=== PATIENT | female | born 1980 | race Caucasian/White ===

== ENCOUNTER 2017-05-15 19:42 | Observation (INO) | payer OTHER ==
--- NOTE | 2017-05-15 20:41 | EDPHY ---
HPI/HX/ROS/PE/MDM Narrative: CHIEF COMPLAINT: Vaginal spotting, Positive home test. HISTORY OF PRESENT ILLNESS: The patient is a 37-year-old female presenting with vaginal spotting and positive home test. The patient has had intermittent spotting over the past two days. Today she had three episodes of spotting as well as abdominal cramping. She states the cramping felt similar to usual menstrual cramps. This evening she started feeling dizzy. Her LMP April 07. She is relatively regular. Patient is not on control. A2. She denies recent sickness. No urinary complaints. No history of STD. No nausea, vomiting , or diarrhea. REVIEW OF SYSTEMS: Aside from elements discussed in the HPI, a comprehensive 10-point review of systems was reviewed and is negative. PAST MEDICAL HISTORY: Denies. SOCIAL HISTORY: . VITAL SIGNS: Reviewed by me GENERAL: Well-developed, well-nourished, resting comfortably in no respiratory distress. HEENT: Atraumatic. Eyes: No icterus, no injection. Mouth: moist mucous membranes. No erythema or lesions. Neck: supple with no adenopathy. LUNGS: Clear to auscultation bilaterally, no wheezes, rhonchi or rales. CARDIAC: Regular rate and rhythm, no rubs, murmurs or gallops. ABDOMEN: Soft, inconsistent very mild adnexal tenderness, nondistended, bowel sounds normal. BACK: No CVA tenderness. EXTREMITIES: No trauma. No edema. Range of motion is normal throughout. NEURO: Alert and oriented, grossly nonfocal. SKIN: Warm and dry, no rash. PSYCHIATRIC: Normal mentation, no agitation. Portions of this note were transcribed by a medical chemist. I personally performed a history, physical exam, medical decision making, and confirmed accuracy of information the transcribed note. ED Course: 37-year-old male presenting with positive at home test and multiple days of intermittent spotting. BHCG-Quant ordered. BMP and CBC pending. Beta Quant is elevated at 916.13. Obstetrics ultrasound is pending. ultrasound is concerning for a number of findings. The patient has a large amount of complex free fluid in the pelvis concerning for hemorrhage. Patient has hyperemic mass in the left ovary concerning for ectopic and patient has a complex hyper vascular structure in the left adnexa and left fallopian tube. No definitive intrauterine or gestational sac is identified. Patient remains hemodynamically stable in the emergency department. She reports she developed some bleeding shortly before her ultrasound. She continues to have no pain. I discussed the results of the ultrasound with the patient. Repeat hemoglobin hematocrit were ordered. Patient's course was also discussed with Dr. Morena Granados. Patient will be admitted to the hospital for further observation as well as serial blood tests. MDM: Differential diagnosis of the patient's vaginal bleeding includes threatened miscarriage, spontaneous miscarriage, ectopic , tubo-ovarian abscess, and a uterine , ovarian cysts, uterine fibroids, uterine cancer, cervical cancer, and infection. - Data Points Imaging Results: Imaging Impressions Obstetrics Ultrasound 05/15/17 21:32 Impression: 1. No definite intrauterine gestation is identified which could reflect very early stage or the equivocal gestational sac may simply be a decidual reaction. 2. Hypervascular left adnexal complex cystic area, possible ectopic gestation with continued follow-up recommended. 3. Right adnexal 5.7 x 4.6 cm lesion which may represent an obstructed right fallopian tube. Results called and discussed with Suzanne Casey MD on 05/16/2017 at 0:05 Imaging: Discussed imaging studies w/ call center supervisor Radiologist Laboratory Results: Laboratory Results 05/15/17 21:08 05/15/17 21:08 05/15/17 05/15/17 05/15/17 21:08 21:08 21:08 WBC RBC Hgb Hct MCV MCH MCHC RDW Plt Count MPV Neut % (Auto) Lymph % (Auto) [place] % (Auto) Eos % (Auto) Baso % (Auto) Nucleat RBC Rel Count Absolute Neuts (auto) Absolute Lymphs (auto) Absolute Monos (auto) Absolute Eos (auto) Absolute Basos (auto) Absolute Nucleated RBC Immature Gran % Immature Gran # Sodium 137 mEq/L mEq/L (134-144) Potassium 3.8 mEq/L mEq/L (3.5-5.2) Chloride 106 mEq/L mEq/L (97-110) Carbon Dioxide 20 mEq/l L mEq/l (22-31) Anion Gap 11 mEq/L mEq/L (8-16) BUN 13 mg/dL mg/dL (7-23) Creatinine 0.9 mg/dL mg/dL (0.6-1.0) Estimated GFR > 60 Glucose 102 mg/dL H mg/dL (70-100) Calcium 9.4 mg/dL mg/dL (8.5-10.4) Beta HCG, Qual POSITIVE Beta HCG, Quant 916.31 mIU/mL H mIU/mL (0-4.83) Patient ABO/Rh O POSITIVE 05/15/17 21:08 WBC 8.88 10^3/uL 10^3/uL (3.80-9.50) RBC 4.48 10^6/uL 10^6/uL (4.18-5.33) Hgb 14.1 g/dL g/dL (12.6-16.3) Hct 40.6 % % (38.0-47.0) MCV 90.6 fL fL (81.5-99.8) MCH 31.5 pg pg (27.9-34.1) MCHC 34.7 g/dL g/dL (32.4-36.7) RDW 13.3 % % (11.5-15.2) Plt Count 224 10^3/uL 10^3/uL (150-400) MPV 10.4 fL fL (8.7-11.7) Neut % (Auto) 78.2 % H % (39.3-74.2) Lymph % (Auto) 13.7 % L % (15.0-45.0) [place] % (Auto) 7.3 % % (4.5-13.0) Eos % (Auto) 0.2 % L % (0.6-7.6) Baso % (Auto) 0.3 % % (0.3-1.7) Nucleat RBC Rel Count 0.0 % % (0.0-0.2) Absolute Neuts (auto) 6.93 10^3/uL H 10^3/uL (1.70-6.50) Absolute Lymphs (auto) 1.22 10^3/uL 10^3/uL (1.00-3.00) Absolute Monos (auto) 0.65 10^3/uL 10^3/uL (0.30-0.80) Absolute Eos (auto) 0.02 10^3/uL L 10^3/uL (0.03-0.40) Absolute Basos (auto) 0.03 10^3/uL 10^3/uL (0.02-0.10) Absolute Nucleated RBC 0.00 10^3/uL 10^3/uL (0-0.01) Immature Gran % 0.3 % % (0.0-1.1) Immature Gran # 0.03 10^3/uL 10^3/uL (0.00-0.10) Sodium Potassium Chloride Carbon Dioxide Anion Gap BUN Creatinine Estimated GFR Glucose Calcium Beta HCG, Qual Beta HCG, Quant Patient ABO/Rh Medications Given: Discontinued Medications Sodium Chloride (Ns) 1,000 mls @ 0 mls/hr IV ONCE ONE; Wide Open PRN Reason: Protocol Stop: 05/15/17 20:51 Last Admin: 05/15/17 21:12 Dose: 1,000 mls General Time Seen by Provider: 05/15/17 20:31 Initial Vital Signs: Initial Vital Signs Temperature (C) 36.9 C 05/15/17 19:47 Heart Rate 74 05/15/17 19:47 Respiratory Rate 14 05/15/17 19:47 Blood Pressure 114/81 H 05/15/17 19:47 O2 Sat (%) 98 05/15/17 19:47 O2 Delivery Mode Room Air Allergies/Adverse Reactions: No Known Allergies Allergy (Unverified 10/05/11 13:25) Home Medications: Medication Instructions Recorded NK [No Known Home Meds] 05/15/17 Departure - Departure Disposition: [facility] Inpatient Acute Clinical Impression: Possible ectopic , Intra abdominal hemorrhage Vaginal bleeding in Qualifiers: Trimester: first trimester Qualified Code(s): O46.91 - Antepartum hemorrhage, unspecified, first trimester Condition: Fair Referrals: Morena Granados DO [Doctor of Osteopathy] - As per Instructions Report Scribed for: Suzanne Casey Report Scribed by: Faviola Fulton Date of Report: 05/15/17 Time of Report: 20:41
[2017-05-15] MEDS ORDERED: NS 1,000 ML IV ONE (20:50)
[2017-05-15 21:18] LABS: % IMMATURE GRANULYOCYTES 0.3 % (0.0-1.1); ABSOLUTE IMMATURE GRANULOCYTES 0.03 10^3/uL (0.00-0.10); ADD DIFF? NO; ADD MORPH? NO; ADD SCAN? NO; ATYPICAL LYMPHOCYTE FLAG 0 (0-99); FRAGMENT RBC FLAG 0 (0-99); HEMATOCRIT 40.6 % (38.0-47.0); HEMOGLOBIN 14.1 g/dL (12.6-16.3); LEFT SHIFT FLG 0 (0-99); LIPEMIA HEMOLYSIS FLAG 90 (0-99); MEAN CELL HEMOGLOBIN 31.5 pg (27.9-34.1); MEAN CELL HEMOGLOBIN CONCENTR. 34.7 g/dL (32.4-36.7); MEAN CELL VOLUME 90.6 fL (81.5-99.8); MEAN PLATELET VOLUME 10.4 fL (8.7-11.7); PLATELET CLUMPS FLAG 0 (0-99); PLATELET COUNT 224 10^3/uL (150-400); RED BLOOD CELL COUNT 4.48 10^6/uL (4.18-5.33); RED CELL DISTRIBUTION WIDTH 13.3 % (11.5-15.2)
[2017-05-15 21:40] LABS: ANION GAP 11 mEq/L (8-16); CALCIUM 9.4 mg/dL (8.5-10.4); CARBON DIOXIDE 20 mEq/l (22-31); CHLORIDE 106 mEq/L (97-110); CREATININE 0.9 mg/dL (0.6-1.0); GLOMERULAR FILTRATION RATE > 60; GLUCOSE 102 mg/dL (70-100); POTASSIUM 3.8 mEq/L (3.5-5.2); SODIUM 137 mEq/L (134-144)
[2017-05-16 02:51] VITALS: BP 115/80; PULSE 89; RESP 18; TEMP 98; O2SAT 96
--- NOTE | 2017-05-16 03:08 | GHP ---
[f rep st] HISTORY AND PHYSICAL DATE OF ADMISSION: 05/16/2017 ADMISSION DIAGNOSIS: Positive test with vaginal bleeding and probable hemoperitoneum. HISTORY OF PRESENT ILLNESS: The patient is a 37-year-old 5, para 2-0-2-2, who is a week pas t her expected period. She had been trying to conceive and had used Femara with this most recent pr egnancy. She began having brown spotting on Sunday and again on Sunday. She was fine Sunday exce pt for increased bloating. This morning she developed bad midline pain and took ibuprofen and had s light red spotting. The pain resolved and started again a couple hours later and then has since res olved. She felt her belly was slightly tender, but overall felt fine except for light bloating toda y. She ate dinner this evening and had lightheaded and dizzy and felt nausea and had to lay down. She called the office, and I advised her to take a test. The test was positive, so patient decided to come in, even know she was feeling back to baseline with the exception of sli ght bloating. Patient arrived to the emergency room, and labs were drawn. Her hemoglobin was 14. Her hematocrit was 40. Her platelets were 222. Her HCG was 916.31. Her vital signs have remained stayed stable. A pelvic ultrasound was obtained, which showed a possible small decidual reaction ve rsus sac within the endometrial canal with no yolk sac or pole identified. There is an equivo laila subchorionic hemorrhage on the left side of the structure. There is some free fluid within the pelvis with complex echogenicity suggesting hemorrhagic fluid. At the left side, there was a 2.7 x 2.5 complex cystic structure with hyperemia. In the right adnexa, there is a vascularized structure measuring 5 x 2.3 x 4.67, which might be a right fallopian tube. There are no clinical findings dorsey ggested of tubo-ovarian abscess. Patient was evaluated in the emergency room and is very comfortabl e. She lives up in [place] with her . Due to the hemoperitoneum and a positive test and living in the [facility], patient will be observed overnight, and we will come up with a man agement plan in the morning. PAST MEDICAL HISTORY: Significant for infertility of unknown etiology. MEDICATIONS: vitamins and recently Femara. PAST SURGICAL HISTORY: D and C x2. ALLERGIES: No known drug allergies. SOCIAL HISTORY: Patient denies tobacco or drug use. She does drink alcohol occasionally. FAMILY MEDICAL HISTORY: Noncontributory. OBSTETRICAL/GYNECOLOGICAL HISTORY: Menarche age 12, periods every 28 days, lasting 5 days. She is a 5, para 2-0-2-2. She has had 2 missed abortions and has had a dilation and curettage for both. In 2008, she had a spontaneous vaginal delivery. In 2016, she had a spontaneous vaginal deli very. Both pregnancies were uncomplicated. Current is in unknown location, possible ecto pic versus missed versus early intrauterine . REVIEW OF SYSTEMS: 10-point review of systems is negative with the above pertinent positives noted, and there is a small amount of vaginal bleeding noted. PHYSICAL EXAMINATION: VITAL SIGNS: Patient's blood pressure is 114/81, 115/73, 133/81. Her heart rate is 74, 84, and 72. She is afebrile. NECK: Supple and mobile. HEART: Rate is irregularly, i rregular. LUNGS: Clear to auscultation bilaterally. ABDOMEN: Soft, nondistended, nontender. The re is no guarding or rebound. No organomegaly is noted. EXTREMITIES: Reveal no calf tenderness or edema. NEUROLOGIC: Intact. PELVIC: She has normal female external genitalia. She has a mobile mid position uterus with no adnexal masses. IMAGING DATA: Pelvic ultrasound was described above. LABORATORY DATA: Described above. ASSESSMENT AND PLAN: A 37-year-old 5, para 2-0-2-2, who is 5 weeks with a quantita tive HCG of just over 900. She does have probable hemoperitoneum in her abdomen. We discussed that this is possibly an ectopic versus a ruptured hemorrhagic cyst. We will observe patient overnight. She is not requiring any pain medicine. If she becomes unstable, will take her to the o perating room for an exploratory laparoscopy. Otherwise, we will repeat her HCG and hemoglobin and hematocrit in the morning. If her pain significantly increases or she becomes unstable with vital s igns, will reassess and operate on patient. Otherwise, we will monitor patient closely to follow HC G and see if this is a normal or possible ectopic . Ectopic precautions have bee n reviewed. /[id number]/MODL
[2017-05-16 06:48] LABS: HEMATOCRIT 38.1 % (38.0-47.0); HEMOGLOBIN 12.8 g/dL (12.6-16.3)
--- NOTE | 2017-05-16 09:51 | SOAPPROG ---
SOAP Progress Note Assessment/Plan: Assessment: early - unknown location rising hcg and stable hct Plan: ectopic precautions, repeat us and labs on sunday05/16/17 09:42 Objective: Vital Signs Temp Pulse Resp BP Pulse Ox 36.6 C 89 18 115/80 96 05/16/17 02:45 05/16/17 02:45 05/16/17 02:45 05/16/17 02:45 05/16/17 02:45 Laboratory Results 05/16/17 06:15 05/15/17 05/16/17 05/17/17 05:59 05:59 05:59 Intake Total 1000 Balance 1000 Physical Exam - Physical Exam General Appearance: WD/WN, alert, no apparent distress Respiratory: chest non-tender, lungs clear, normal breath sounds Cardiac/Chest: normal peripheral pulses, regular rate, rhythm Abdomen: normal bowel sounds, non-tender, soft, other (no guarding or rebound) Skin: normal color, warm/dry Extremities: normal range of motion, non-tender, normal inspection, normal capillary refill Neuro/Psych: no motor/sensory deficits, alert, normal mood/affect, oriented x 3 ICD10 Worksheet Patient Problems: Problems Problem Status Onset Intra abdominal hemorrhage Acute Vaginal bleeding in Acute Delivery normal Acute srom labor Acute
== END 2017-05-16 10:53 | disposition home or self-care (01) ==
LOC: FOB 05-16 01:30
PROVIDERS: ADMIT Obstetrics & Gynecology; ATTEND Obstetrics & Gynecology
DX: O20.9 Hemorrhage in early pregnancy, unspecified (principal); Z3A.00 Weeks of gestation of pregnancy not specified
CPT/HCPCS: 76801; 96360; 99285; G0378; 82947-QW; 84144-90

== ENCOUNTER 2017-06-11 15:47 | Observation (INO) | payer OTHER ==
--- NOTE | 2017-06-11 15:09 | GHP ---
[f rep st] PREOP HISTORY AND PHYSICAL DATE OF PLANNED PROCEDURE: 06/11/2017. PLANNED PROCEDURE: Diagnostic laparoscopy, possible salpingectomy, possible oophorectomy and ovarian cystectomy. INDICATIONS: Patient is a 37-year-old, 5, para 2-0-3-2, who initially presented to the emergency room on 05/16/2017 for bleeding and pain in . Patient had been trying to conceive and had used Femara to conceive due to a history of infertility. She had brown spotting a few days before admission, and then on day of admission had a significant amount of cramping and dizziness. She presented to the emergency room and her vital signs were stable. Her quantitative hCG was 916 and her hematocrit was stable. A pelvic ultrasound was obtained, which showed some free fluid within the pelvis with complex echogenicity, suggesting hemorrhagic fluid. The left side, there was a 2.7 x 2.5 complex cystic structure with hyperemia. The right adnexa had a vascularized structure measuring 5 x 2.3 x 4.67 cm, which might be the right fallopian tube. The patient was admitted overnight and evaluated again in the morning. Her hCG increased to 964. She was given ectopic precautions and instructed to follow up at the office. She had a followup ultrasound in the office done on 05/18, which showed complex material in the right adnexa. We had a long discussion about management options. She was having episodes of increasing pain. Her hCG 48 hours after discharged from the hospital was 1129. Management options were reviewed with the patient. Patient elected to proceed with methotrexate. She was given methotrexate on 05/18. Repeat quantitative hCG 4 days later was 809. On day 7 it was 639, which showed an adequate drop. We continued to follow hCGs and on day 14 her quantitative hCG was 114, on day 21 it was 58.43. She had a repeat quantitative hCG drawn today , which was 41.6, which is still a drop from her last quantitative hCG, which was 58.43. She had an ultrasound performed today in our office, which showed a uterus measuring 8 x 4 x 5 cm with an endometrium of 0.56 cm. Posterior and to the right of the uterus is a 9.8 x 8.5 x 3.7 cm complex adnexal mass. In the left adnexa there appears to be 2 hemorrhagic cystic areas, 1 measuring 8.1 x 6.4 x 4.9 cm. There are 2 separate hemorrhagic cystic areas measuring 2.9 x 4.2 x 4.4 cm, and one that is 5.3 x 4.6 x 4.5 cm. There is flow between the cystic areas. We had a long discussion with the patient, who is anxious and frustrated with this long history of being followed. We discussed continued close surveillance versus surgical evaluation. Because of the 2 large adnexal masses and persistent episodic pain, decision has been made to proceed with a laparoscopy and evaluation of the presumably right adnexal mass and left, and to perform a left ovarian cystectomy on the hemorrhagic cysts. We have extensively reviewed options of expected management with close observation versus proceeding with surgery, and patient is agreeable to proceed with surgery. Patient has been properly consented. MEDICAL HISTORY: Significant for infertility of an unknown etiology. MEDICATIONS: vitamins. PAST SURGICAL HISTORY: D and C x2. ALLERGIES: No known drug allergies. SOCIAL HISTORY: Patient denies tobacco or drug use. She does drink alcohol occasionally. FAMILY MEDICAL HISTORY: Noncontributory. 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 Periods every 28 days, lasting 5 days. She is a 5, para 2-0-3-2. She has had 2 missed abortions, which were treated with dilation and curettage for both. In 2007, she had a spontaneous vaginal delivery. In 2016, she had a spontaneous vaginal delivery. Both pregnancies were uncomplicated. Most recent is a of unknown location, presumptive ectopic versus missed . REVIEW OF SYSTEMS: 10-point review of systems is negative with the exception of the above-mentioned pertinent positives, including episodic abdominal pain, cramping, nausea, and episodic diarrhea. She denies any vaginal bleeding. PHYSICAL EXAMINATION: VITAL SIGNS: Stable. GENERAL APPEARANCE: Alert and oriented x3. She appears somewhat anxious, but otherwise unremarkable. NEURO: Unremarkable. NECK: Mobile and supple. HEART: Rate is regular, regular. LUNGS: Clear to auscultation bilaterally. ABDOMEN: Soft, nondistended, nontender. EXTREMITIES: Reveal no calf tenderness or edema. PELVIC: Mobile midposition uterus with adnexal fullness. Pelvic ultrasound was described above. ASSESSMENT AND PLAN: A 37-year-old, 5, para 2-0-3-2, with abnormal ultrasound findings status post several weeks after methotrexate. We have discussed expectant management versus surgical intervention. The patient will undergo a diagnostic laparoscopy, possible salpingectomy, possible oophorectomy , and ovarian cystectomy. Risks and benefits have been extensively reviewed with the patient and the patient has been properly consented. /[id number]/MODL MTDD
[2017-06-11] MEDS ORDERED: LR 1,000 ML IV ONE (16:30)
--- NOTE | 2017-06-11 19:06 | PDANEPAE ---
ANE History of Present Illness 37 yo F with recent h/o ectopic , s/p methotrexate, here for ex lap ANE Past Medical History - Cardiovascular History Hx Hypertension: No Hx Arrhythmias: No Hx Chest Pain: No Hx Coronary Artery / Peripheral Vascular Disease: No Hx CHF / Valvular Disease: No Hx Palpitations: No - Pulmonary History Hx COPD: No Hx Asthma/Reactive Airway Disease: No Hx Recent Upper Respiratory Infection: No Hx Oxygen in Use at Home: No Hx Sleep Apnea: No - Neurologic History Hx Cerebrovascular Accident: No Hx Seizures: No Hx Dementia: No - Endocrine History Hx Diabetes: No - Renal History Hx Renal Disorders: No - Liver History Hx Hepatic Disorders: No - Neurological & Psychiatric Hx Hx Neurological and Psychiatric Disorders: No - Cancer History Hx Cancer: No - Congenital Disorder History Hx Congenital Disorders: No - GI History Hx Gastrointestinal Disorders: No - Chronic Pain History Chronic Pain: No - Surgical History Prior Surgeries: D&C ANE Review of Systems - Exercise capacity Exercise capacity: >=4 METS METS (RN): 5 METS ANE Patient History - Allergies Allergies/Adverse Reactions: No Known Allergies Allergy (Unverified 10/05/11 13:25) - Home Medications Home Medications: NK [No Known Home Meds] 05/15/17 [Last Taken Unknown] - NPO status NPO Status: no food or drink >8 hours NPO Since - Liquids (Date): 06/11/17 NPO Since - Liquids (Time): 11:00 NPO Since - Solids (Date): 06/11/17 NPO Since - Solids (Time): 09:00 - Anes Hx Anes Hx: no prior problems - Smoking Hx Smoking Status: Never smoked - Alcohol Use Alcohol Use: Occasionally - Family Anes Hx Family Anes Hx: none Family Hx Anesthesia Complications: none ANE Labs/Vital Signs - Vital Signs Blood Pressure: 114/84 Heart Rate: 105 Respiratory Rate: 13 O2 Sat (%): 97 Height: 170.18 cm Weight: 63.503 kg ANE Physical Exam - Airway Neck exam: FROM Mallampati Score: Class 2 Mouth exam: normal dental/mouth exam - Pulmonary Pulmonary: no respiratory distress, clear to auscultation - Cardiovascular Cardiovascular: regular rate and rhythym, no murmur, rub, or gallop - ASA Status ASA Status: I ANE Anesthesia Plan Anesthesia Plan: general endotracheal anesthesia
[2017-06-11] MEDS ORDERED: MIDAZOLAM 2 MG/2 ML VIAL IVP ONE (19:38)
[2017-06-11] MEDS ORDERED: ONDANSETRON 4 MG/2 ML VIAL ONE (20:57)
[2017-06-11] MEDS ORDERED: PROPOFOL/EMULSION 500 MG/50 ML BOTTLE IV ONE (20:57)
[2017-06-11] MEDS ORDERED: DEXAMETHASONE 4 MG/ML VIAL ONE ×2 (20:57)
[2017-06-11] MEDS ORDERED: fentaNYL 100 MCG/2 ML INJ ONE ×3 (20:57→23:10)
[2017-06-11] MEDS ORDERED: LIDOCAINE 2% 100 MG/5 ML SYR ONE (20:58)
[2017-06-11] MEDS ORDERED: ROCURONIUM 50 MG/5 ML VIAL ONE ×2 (20:58→22:07)
[2017-06-11] MEDS ORDERED: SILVER NITRATE APPLICATOR 1 APPL TP ONE (21:00)
[2017-06-11] MEDS ORDERED: BUPIVACAINE 0.25% 30 ML SDV ONE (21:00)
[2017-06-11] MEDS ORDERED: SUGAMMADEX SODIUM 200 MG/2 ML VIAL IVP ONE (22:37)
[2017-06-11] MEDS ORDERED: NALOXONE HCL 0.4 MG/ML INJ IVP PRN (22:46)
[2017-06-11] MEDS ORDERED: ALBUTEROL 3 ML DEYVIAL IH PRN (22:46)
[2017-06-11] MEDS ORDERED: ONDANSETRON 4 MG/2 ML VIAL IVP PRN (22:46)
[2017-06-11] MEDS ORDERED: ACETAMINOPHEN 500 MG TAB PO PRN (22:46)
[2017-06-11] MEDS ORDERED: HYDROCODONE/APAP 5/325 TAB PO PRN (22:46)
[2017-06-11] MEDS ORDERED: PROMETHAZINE HCL 25 MG/ML INJ IVP PRN (22:46)
[2017-06-11] MEDS ORDERED: LABETALOL HCL 50 MG/10 ML SYR IVP PRN (22:46)
[2017-06-11] MEDS ORDERED: LR 500 ML IV PRN (22:46)
[2017-06-11] MEDS ORDERED: fentaNYL 100 MCG/2 ML INJ IVP PRN (22:46)
[2017-06-11] MEDS ORDERED: METOCLOPRAMIDE 10 MG/2 ML VIAL IVP PRN (22:46)
[2017-06-11] MEDS ORDERED: MEPERIDINE 25 MG/ML SYR IVP PRN (22:46)
[2017-06-11] MEDS ORDERED: OXYCODONE/APAP 5/325 TAB PO PRN (22:46)
[2017-06-11] MEDS ORDERED: DEXAMETHASONE 4 MG/ML VIAL IVP PRN (22:46)
--- NOTE | 2017-06-11 23:09 | POSTANESTH ---
Post Anesthetic Evaluation Cardiovascular Status: Normal, Stable Respiratory Status: Normal, Stable Level of Consciousness/Mental Status: Can Participate in Eval, Mildly Sleepy, Arousable Pain Control: Adequate, Prn Tx Ordered Nausea/Vomiting Control: Adequate, Prn Tx Ordered Complications Possibly Related to Anesthesia: None Noted Notes: slightly tearful, denies pain
[2017-06-11] MEDS: fentaNYL 100 MCG/2 ML INJ IVP PRN ×2 (23:13→23:20)
[2017-06-11] MEDS ORDERED: MEPERIDINE 25 MG/ML SYR ONE (23:18)
[2017-06-11] MEDS ORDERED: LR 1,000 ML IV SCH (23:30)
[2017-06-12] MEDS ORDERED: HYDROmorphONE/DILAUDID 1 MG/ML SYR IVP PRN (00:37)
[2017-06-12] MEDS ORDERED: IBUPROFEN 600 MG TAB PO PRN (00:37)
[2017-06-12] MEDS: KETOROLAC 30 MG/1 ML SDV IVP PRN ×2 (00:45→06:46)
[2017-06-12] MEDS: HYDROCODONE/APAP 5/325 TAB PO PRN ×5 (01:29→13:37)
[2017-06-12 04:08] VITALS: TEMP 97.9
[2017-06-12 08:57] VITALS: BP 91/59; PULSE 78; RESP 17; O2SAT 98
--- NOTE | 2017-06-12 11:16 | GOP ---
[f rep st] OPERATIVE REPORT DATE OF OPERATION: 06/11/2017 SURGEON: Morena Granados DO PERSONAL TRAINER: Juliann Sky M.D. ANESTHESIA: General endotracheal tube. ANESTHESIOLOGIST: Bryce Ignacio M.D. PREOPERATIVE DIAGNOSIS: 1. Suspected ectopic with. 2. Bilateral 9 cm adnexal masses. POSTOPERATIVE DIAGNOSIS: 1. Right ectopic . 2. Hemoperitoneum. 3. Left ovarian cysts. PROCEDURE PERFORMED: 1. Laparoscopy. 2. Right salpingectomy. 3. Lysis of adhesions. 4. Left ovarian cystectomy. FINDINGS: SPECIMENS: Right fallopian tube and portion of left cyst wall. ESTIMATED BLOOD LOSS: 50 mL. INDICATIONS: The patient is a 37-year-old, 5 para 2-0-3-2, who initially presented to the e mergency room on 05/16/2017 with bleeding and lightheadedness, with a positive test. The patient had been trying to conceive and had been on Femara. She was admitted and had a quantitative HCG of 916 and a hematocrit of 40. She was observed overnight in the hospital due to ultrasound fi ndings of hemoperitoneum. The patient was stable and her pain was well controlled. Her HCG did ris e slightly, but her hematocrit remained stable. We had a long discussion about management options w ith the patient, and the patient was instructed to follow up in the office in 48 hours after a blood draw to assess her quantitative HCG. Her HCG did not rise appropriately. She had an ultrasound in our office, which showed a left 2.7 x 2.5 cm complex cyst. The right adnexa had a 5 x 4 x 2 cm adn exal mass, possibly the right fallopian tube. The patient was given, because of the abnormal rise o f her HCG and her ultrasound findings, methotrexate. She has been followed with serial quantitative HCGs. They have been dropping well; however, the patient has continued to have intermittent abdomi nal pain and twinges of discomfort. Her most recent quantitative HCG was this morning, which was 41 . She had a pelvic ultrasound which showed a 9.8 x 8.5 x 3 cm complex adnexal mass on the right ramya e, and 2 hemorrhagic cystic areas on the left ovary overall measuring 8.1 x 6.4 x 4.9 cm. A long di scussion was had with the patient and her about management options. The decision was made t o proceed with a diagnostic laparoscopy, probable salpingectomy and an ovarian cystectomy. Risks and benefits were reviewed extensively with the patient, and the patient has been properly con sented. DESCRIPTION OF PROCEDURE: The patient was taken to the operating room with intravenous fluids in pl negrito. She was then placed on the operating room table in the dorsal supine position where general an esthesia was obtained. She was then repositioned into the dorsal lithotomy position with the Yellof in stirrups and prepped and draped in the normal sterile fashion. Exam under anesthesia revealed a mobile mid position uterus with fullness behind the uterus and left adnexal fullness. A Robbins catheter was placed. A speculum was then placed in the patient's vagina. An Allis clamp wa s used to grasp the anterior lip of the cervix. An acorn uterine manipulator was then inserted. Attention was then turned to the patient's abdomen, where a 5 mm skin incision was then made in the umbilicus and a 5 mm laparoscope was then advanced into the patient's abdomen under direct visualiza tion. The abdomen was then insufflated with CO2 gas until an adequate pneumoperitoneum was achieved . A 5 mm trocar was then placed in the patient's right lower quadrant under direct visualization an d a 10 mm trocar was then placed in the patient's left lower quadrant under direct visualization. T he uterus was manipulated. A large left adnexal mass was noted. The right fallopian tube was noted to be dilated and attached to the patient's right sidewall, and a large amount of clotted blood was noted to be in the posterior cul-de-sac. A suction bus starter was then introduced and the clot was removed from the posterior cul-de-sac. The right fallopian tube was then identified and followed out to the fimbriated end. It was noted t o be grossly dilated most likely consistent with an ectopic . The left side was noted to h ave 2 large cysts within the ovary. The left ovary and fallopian tube were adhered to the pelvic si dewall. The bowel was noted to be adherent to the posterior portion of the uterus. The LigaSure was then introduced and the filmy bowel adhesions to the posterior uterus were dissecte d off and hemostasis was assured. A right salpingectomy was performed, staying as close as possible to the fallopian tube. We were not able to clearly identify the right ovary due to the large amoun t of scar tissue in the posterior cul-de-sac. The right fallopian tube was then withdrawn through t he 10 mm trocar. Attention was then turned to the patient's right side, where a small cystotomy was made in the super ior cyst. A large amount of clear fluid was noted. A second small cystotomy was made in the inferi or portion of the ovary and clear fluid drained out of that cyst as well. Hemostasis was assured wi th the LigaSure. The right fallopian tube and right ovary were dissected off the pelvic sidewall on the left side. The appendix was identified and was unremarkable. The right remainder of the pelvi s was unremarkable. The posterior cul-de-sac was again evaluated and was unremarkable. Solaneg powder was then applied to the left ovarian cyst wall and at the area of the salpingectomy. Hemostasis was assured. The 10 mm trocar was then removed from the patient's abdomen, the fascial c losure device was then inserted and the fascia was closed with 0 Vicryl in an interrupted fashion. All the other trocars were removed after CO2 gas was expressed, and 4-0 Monocryl was used to close t he skin of all the incisions. The Allis clamp and the uterine manipulator were then removed. A speculum exam was performed and no bleeding was noted. The patient was then returned to the dorsal supine position where she was easily awoken from anesthe get. Sponge, lap and needle count were correct x2. The patient was transported to the [facility] in a stable condition. /[id number]/MODL
--- NOTE | 2017-06-12 13:05 | SOAPPROG ---
SOAP Progress Note Assessment/Plan: Assessment: pod# 1 s/p laparoscopy, right salpingectomy, left ovarian cystectomy ectopic Plan: routine post operative care and discharge instructions 06/12/17 13:02 Subjective: patient is doing much better now. pain is well controlled now. does have some abdominal discomfort with urination. small amount of vaginal bleeding. tolerating diet. able to ambulate. passing gas. able to voiding. long discussion about operation and discharge plan and instructions. multiple questions answered. Objective: Vital Signs Temp Pulse Resp BP Pulse Ox 36.6 C 78 17 91/59 L 98 06/12/17 08:00 06/12/17 08:00 06/12/17 08:00 06/12/17 08:00 06/12/17 08:00 06/11/17 06/12/17 06/13/17 05:59 05:59 05:59 Intake Total 2700 Output Total 50 Balance 2650 Physical Exam - Physical Exam General Appearance: WD/WN, alert, no apparent distress Neck: non-tender, full range of motion, supple Respiratory: chest non-tender, lungs clear, normal breath sounds Cardiac/Chest: normal peripheral pulses, regular rate, rhythm Abdomen: normal bowel sounds, non-tender, soft Skin: normal color, warm/dry, other (incisions unremarkable) Extremities: normal range of motion, non-tender, normal inspection, normal capillary refill Neuro/Psych: no motor/sensory deficits, alert, normal mood/affect, oriented x 3 ICD10 Worksheet Patient Problems: Problems Problem Status Onset Delivery normal Acute Intra abdominal hemorrhage Acute Vaginal bleeding in Acute srom labor Acute
== END 2017-06-12 14:20 | disposition home or self-care (01) ==
LOC: FSGY 15:47 → FOB 06-12 00:16
PROVIDERS: ADMIT Obstetrics & Gynecology; ATTEND Obstetrics & Gynecology
PROC: 0UB14ZZ Excision of Left Ovary, Percutaneous Endoscopic Approach (ICD-10-PCS; principal; 2017-06-12)
PROC: 0UT54ZZ Resection of Right Fallopian Tube, Percutaneous Endoscopic Approach (ICD-10-PCS; principal; 2017-06-12)
DX: O00.90 Unspecified ectopic pregnancy without intrauterine pregnancy (principal); O34.80 Maternal care for other abnormalities of pelvic organs, unspecified trimester; N83.202 Unspecified ovarian cyst, left side
CPT/HCPCS: 59151; G0378; J1100; J1885; J2001; J2250; J2405; J2704; J3010